=== PATIENT | female | born 1985 | race Two or more races ===

== ENCOUNTER 2019-11-20 15:01 | Inpatient (IN) | payer OTHER ==
[~2019-11-20] VITALS: Ht 160 cm; Wt 3.6 kg
[2019-12-15] MEDS ORDERED: OBTREX DHA COM1 EACH PO (13:11)
== END 2019-12-18 19:39 | disposition home or self-care (01) | DRG 788 ==
LOC: LDR 12-15 13:15 → O/R 12-16 07:05 → OB/GYN 12-16 07:05
PROVIDERS: Obstetrics & Gynecology; ADMIT Obstetrics & Gynecology; ATTEND Obstetrics & Gynecology
PROC: 0UB00ZZ Excision of Right Ovary, Open Approach (ICD-10-PCS; 2019-12-16)
PROC: 4A1HXFZ Monitoring of Products of Conception, Cardiac Rhythm, External Approach (ICD-10-PCS; 2019-12-16)
PROC: 3E033VJ Introduction of Other Hormone into Peripheral Vein, Percutaneous Approach (ICD-10-PCS; 2019-12-16)
PROC: 10D00Z1 Extraction of Products of Conception, Low, Open Approach (ICD-10-PCS; principal; 2019-12-16 09:00)
DX: O82 Encounter for cesarean delivery without indication (principal); Z3A.40 40 weeks gestation of pregnancy; Z37.0 Single live birth; Z20.828 Contact with and (suspected) exposure to other viral communicable diseases; D27.0 Benign neoplasm of right ovary; O36.63X0 Maternal care for excessive fetal growth, third trimester, not applicable or unspecified

== ENCOUNTER 2019-12-11 10:07 | Outpatient (CLI) | payer OTHER | END 2019-12-11 10:54 | disposition home or self-care (01) | LOC: NST 10:07 | PROVIDERS: ATTEND Obstetrics & Gynecology | DX: Z34.83 Encounter for supervision of other normal pregnancy, third trimester (principal) ==

== ENCOUNTER → 2019-12-14 | Outpatient (CLI) | payer OTHER ==
[~2019-12-14] MED LIST: OBTREX DHA COM1 EACH PO
== END | disposition home or self-care (01) ==
LOC: NST 13:16
PROVIDERS: ATTEND Obstetrics & Gynecology
DX: Z34.83 Encounter for supervision of other normal pregnancy, third trimester (principal)